=== PATIENT | female | born 1990 | race Hispanic/Latino ===

== ENCOUNTER 2021-02-12 12:33 | Outpatient (CLI) | payer MEDICAID ==
[2021-02-12 12:56] LABS: Basophils # (Auto) 0.1 K/mm3 (0.0-0.1); Basophils % (Auto) 1.1 % (0.0-1.8); Eosinophils # (Auto) 0.1 K/mm3 (0.0-0.4); Eosinophils % (Auto) 1.3 % (0.0-4.3); Hematocrit 38.3 % (30.3-42.9); Hemoglobin 12.6 gm/dl (10.1-14.3); Lymphocytes # (Auto) 2.3 K/mm3 (1.2-5.4); Lymphocytes % (Auto) 27.7 % (13.4-35.0); Mean Corpuscular HGB Conc 33 % (30-34); Mean Corpuscular Volume 76 fl (79-97); Monocytes # (Auto) 0.5 K/mm3 (0.0-0.8); Monocytes % (Auto) 6.6 % (0.0-7.3); Platelet Count 215 K/mm3 (140-440); Red Blood Count 5.05 M/mm3 (3.65-5.03); Red Cell Distribution Width 16.1 % (13.2-15.2)
[2021-02-12 13:22] LABS: % Iron Saturation 11.04 %; Alanine Aminotransferase 11 units/L (7-56); Albumin 3.8 g/dL (3.9-5); Blood Urea Nitrogen 12 mg/dL (7-17); Calcium 9.1 mg/dL (8.4-10.2); Chol/HDL Ratio 3.18 %; HDL Cholesterol 48 mg/dL (40-59); Hemolysis Index 4; Iron 34 ug/dL (37-170); LDL Cholesterol,Direct 108 mg/dL (50-130); Total Iron Binding Capacity 308 mcg/dL (250-450)
[2021-02-12 13:44] LABS: BUN/Creatinine Ratio 17
== END 2021-02-12 12:34 | disposition home or self-care (01) ==
LOC: LAB 12:33
PROVIDERS: ATTEND Surgery
DX: E66.01 Morbid (severe) obesity due to excess calories (principal); K30 Functional dyspepsia; E11.9 Type 2 diabetes mellitus without complications
CPT/HCPCS: 36415; 80053; 80061; 82306; 82607; 82728; 83036; 83550; 84443; 85025; 85730

== ENCOUNTER 2021-03-03 07:16 | Outpatient (CLI) | payer MEDICAID ==
--- NOTE | 2021-03-03 09:37 | Fluoroscopy Report ---
UPPER GI HISTORY: OBESITY. Preop evaluation for bariatric surgery. TECHNIQUE: Single and double contrast barium technique utilized to evaluate the esophagus, stomach, and duodenal C-loop. FINDINGS: To begin the exam, swallowing was evaluated in the lateral position under direct fluorosco py. Swallowing was normal. No mucosal irregularity, mass, mass effect, or critical stenosis. There were no abnormal tertiary c ontractions as seen with dysmotility. No gastroesophageal reflux. IMPRESSION: Unremarkable exam. Fluoroscopic time: 2.3 minutes Number of fluoroscopic images: 23 Signer Name: Rodney Earl Jr, MD Signed: 03/03/2021 9:32 AM Workstation Name: [id number]
--- NOTE | 2021-03-04 11:44 | Treadmill Report ---
[facility] Test Date: 2021-03-03 Test Time: 09:30:00 Pat Name: CAIO MALONE Department: Room: Gender: F Cloth Printer Helper: Yaritza Jensen : 1990 Requested By: TIFFANIE AQUINO Order Number: [id number] Reading MD: Frederick Dillon Interpretive Statements Baseline EKG showed sinus rhythm at a rate of 58 bpm. Poor R wave progression noted from V1 to V3. Exercised for 9 minutes on standard Yaron protocol. Attained a heart rate of 159 bpm. This is 84% of predicted maximal heart rate. Test was stopped because of fatigue. No chest pain. No EKG changes to suggest ischemia. No arrhythmia. Patient's resting blood pressure is 117/ 62. Peak blood pressure is 127/54. Final impression.: Fair exercise tolerance, negative for angina, negative for ischemia on EKG, no arrhythmia, appropriate blood pressure response. Overall low risk study. Electronically Signed On 03-04-2021 11:43:49 EDT by Frederick Dillon
--- NOTE | 2021-03-04 17:42 | Electrocardiograph Report ---
[facility] Test Date: 2021-03-03 Test Time: 09:10:52 Pat Name: CAIO MALONE Department: Room: Gender: F Process Consultant: HIRA : 1990 Requested By: TIFFANIE AQUINO Order Number: [id number] Reading MD: Frederick Dillon Measurements Intervals [place] Rate: 56 P: -7 [place]: 138 QRS: 15 QRSD: 89 T: 19 QT: 432 QTc: 418 Interpretive Statements Sinus bradycardia No previous ECG available for comparison Electronically Signed On 03-04-2021 17:41:48 EDT by Frederick Dillon
== END 2021-03-03 07:17 | disposition home or self-care (01) ==
LOC: CARD 07:16
PROVIDERS: ATTEND Surgery
DX: Z01.818 Encounter for other preprocedural examination (principal); E66.01 Morbid (severe) obesity due to excess calories
CPT/HCPCS: 74246; 93005; 93017

== ENCOUNTER 2021-04-09 11:53 | Outpatient (CLI) | payer MEDICAID ==
--- NOTE | 2021-04-12 08:50 | XRay Report ---
CHEST 2 VIEWS INDICATION / CLINICAL INFORMATION: MORBID OBESITY. COMPARISON: None available. FINDINGS: SUPPORT DEVICES: None. HEART / MEDIASTINUM: No significant abnormality. LUNGS / PLEURA: No significant pulmonary or pleural abnormality. No pneumothorax. ADDITIONAL FINDINGS: No significant additional findings. IMPRESSION: 1. No acute findings. Signer Name: Douglas Garcia MD Signed: 04/12/2021 8:46 AM Workstation Name: [id number]
== END 2021-04-09 11:54 | disposition home or self-care (01) ==
LOC: XRAY 11:53
PROVIDERS: ATTEND Surgery
DX: E66.01 Morbid (severe) obesity due to excess calories (principal)
CPT/HCPCS: 71046